=== PATIENT | female | born 1960 | race Caucasian/White ===

== ENCOUNTER 2017-01-06 20:49 | Emergency (ER) | payer OTHER ==
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
[2017-01-06] MEDS ORDERED: KETOROLAC TROMETHAMINE 30 MG/1 ML VIAL IVPUSH ONE (21:02)
[2017-01-06] MEDS ORDERED: SODIUM CHLORIDE 1,000 ML IV ONE (21:02)
[2017-01-06] MEDS ORDERED: METOCLOPRAMIDE HCL INJECTION 10 MG/2 ML VIAL IVPUSH ONE (21:02)
[2017-01-06 21:03] VITALS: TEMP 98.7; BMI 32.3
[2017-01-06] MEDS ORDERED: KETOROLAC TROMETHAMINE 30 MG/1 ML VIAL ONE (21:32)
[2017-01-06 21:35] VITALS: PULSE 82
[2017-01-06 21:38] VITALS: BP 140/86
[2017-01-06 22:22] LABS: BASOPHIL 1.6 % (0-2.0); EOSINOPHIL 1.4 % (0-4.5); MCH 20.5 pg (25.7-33.7); MCHC 32.5 g/dl (32.0-36.0); MEAN CELL VOLUME 63.2 fl (80-96); MEAN PLT VOLUME 9.6 fl (7.5-11.1); NEUTROPHILS 54.1 % (42.8-82.8); PLATELET COUNT 195 K/MM3 (134-434); WHITE BLOOD COUNT 6.9 K/mm3 (4.0-10.8)
[2017-01-06 22:40] LABS: ALBUMIN 4.3 g/dl (3.5-5.0); ALK PHOS 47 U/L (32-92); ANION GAP 6 (8-16); BILIRUBIN,TOTAL 0.4 mg/dl (0.2-1.0); CALCIUM 9.7 mg/dl (8.4-10.2); CO2 28 mmol/L (22-28); CREATININE 0.7 mg/dl (0.6-1.3); GLUCOSE,RANDOM 104 mg/dl (74-106); SGOT/AST 19 U/L (10-42); SGPT/ALT 24 U/L (10-40)
[2017-01-06 23:38] LABS: ANISOCYTOSIS 2+; MICROCYTOSIS 3+; OVALOCYTE 2+; PLATELET ESTIMATE ADEQUATE (NORMAL); TARGET CELLS 2+; TEAR DROP CELLS 2+
[2017-01-06 23:39] LABS: HYPOCHROMIA 3+
== END 2017-01-06 22:57 | disposition home or self-care (01) ==
LOC: FER 20:49
PROC: 3E0333Z Introduction of Anti-inflammatory into Peripheral Vein, Percutaneous Approach (ICD-10-PCS; principal; 2017-01-06)
PROC: 3E033GC Introduction of Other Therapeutic Substance into Peripheral Vein, Percutaneous Approach (ICD-10-PCS; 2017-01-06)
PROC: 3E0337Z Introduction of Electrolytic and Water Balance Substance into Peripheral Vein, Percutaneous Approach (ICD-10-PCS; 2017-01-06)
DX: M54.2 Cervicalgia (principal); V09.3XXA Pedestrian injured in unspecified traffic accident, initial encounter; Y93.89 Activity, other specified; Y92.410 Unspecified street and highway as the place of occurrence of the external cause
CPT/HCPCS: 36415; 72050-TC; 72070-TC; 72100-TC; 73110-TC-RT; 80053; 85025; 99282-25

== ENCOUNTER 2021-03-13 14:01 | Emergency (ER) | payer OTHER ==
[2021-03-13 14:17] VITALS: BP 163/94; PULSE 79; TEMP 100; BMI 33.8
== END 2021-03-13 14:55 | disposition home or self-care (01) ==
LOC: FER 14:01
DX: U07.1 COVID-19 (principal)
CPT/HCPCS: 71045-TC-FY; 99283-25